=== PATIENT | male | born 1940 | race Caucasian/White ===

== ENCOUNTER 2017-03-23 13:36 | Emergency (ER) | payer MEDICARE ==
[2017-03-23] MEDS ORDERED: ZYLOPRIM 100MG100 MG PO (13:54)
[2017-03-23] MEDS ORDERED: AMLODIPINE BESY10 MG PO (13:55)
[2017-03-23] MEDS ORDERED: CEFAZOLIN 1 GM VIAL (13:55)
[2017-03-23] MEDS ORDERED: CHILDREN'S ASPI81 M1 PO (13:55)
[2017-03-23] MEDS ORDERED: CARVEDILOL25 MG PO (13:55)
[2017-03-23] MEDS ORDERED: FUROSEMIDE40 MG (13:55)
[2017-03-23] MEDS ORDERED: ACIDOPHILUS LA1 EACH PO (13:57)
[2017-03-23 16:21] VITALS: BP 124/78
== END 2017-03-23 16:16 | disposition home or self-care (01) ==
LOC: ED 13:36
DX: T80.212A Local infection due to central venous catheter, initial encounter (principal); M46.20 Osteomyelitis of vertebra, site unspecified; E11.9 Type 2 diabetes mellitus without complications; I25.10 Atherosclerotic heart disease of native coronary artery without angina pectoris; Z79.82 Long term (current) use of aspirin